=== PATIENT | male | born 1940 | race Caucasian/White ===

== ENCOUNTER 2017-08-28 08:26 | Emergency (ER) | payer OTHER | END 2017-08-28 12:30 | disposition home or self-care (01) | LOC: E/R 08:26 | DX: J98.09 Other diseases of bronchus, not elsewhere classified (principal); Z43.0 Encounter for attention to tracheostomy | CPT/HCPCS: 94002; 99283-25 ==

== ENCOUNTER 2017-12-01 12:47 | Day surgery (SDC) | payer OTHER ==
[~2017-12-01 12:47] MED LIST: CEFAZOLIN 1 GM INJ; LIDOCAINE 2% (SDV) 5 ML INJ
[2017-12-01] MEDS ORDERED: IOHEXOL 300MG/ML 30 ML BTL (16:17)
[2017-12-01] MEDS ORDERED: FENTAnyl 50 MCG/ML VIAL (17:07)
[2017-12-01] MEDS ORDERED: PHENYLephrine (100 MCG/ML) 5ML SYG (17:15)
[2017-12-01] MEDS: LIDOCAINE 1% (MPF) 10 ML INJ (17:26)
[2017-12-01] MEDS: BUPIVACAINE 0.5% (SDV) 30 ML INJ (17:26)
[2017-12-01] MEDS: HEPARIN 1000 UNITS/ML 10 ML INJ (17:28)
[2017-12-01] MEDS ORDERED: morphine 2 MG INJ IV (18:00)
== END 2017-12-01 18:33 ==
LOC: SDS 12:47
DX: I13.2 Hypertensive heart and chronic kidney disease with heart failure and with stage 5 chronic kidney disease, or end stage renal disease (principal); I50.9 Heart failure, unspecified; I25.10 Atherosclerotic heart disease of native coronary artery without angina pectoris; I48.91 Unspecified atrial fibrillation; E11.9 Type 2 diabetes mellitus without complications
CPT/HCPCS: 36581; 71045